=== PATIENT | female | born 2000 | race Caucasian/White ===

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

== ENCOUNTER → 2024-08-26 | Outpatient (CLI) | payer BC, OTHER ==
--- NOTE | 2024-08-27 09:31 | CA ---
Transthoracic Echo Report Name: Boris Waldron Age: 24 Gender: F : 2000 Exam Date: 08/26/2024 18:02 Exam Location: [facility] Ht (in): 60 Wt (lb): 196 Ordering Physician: Sunny Retana MD Attending/Referring Phys: Mariaelena Honeycutt PAC Pre Billing Clinician Mary Vaughan RDCS Procedure CPT: Indications: R07.89 chest pain Cardiac Hx: Technical Quality: Fair Contrast 1: Total Dose (mL): Contrast 2: Total Dose (mL): MEASUREMENTS (Male / Female) Normal Values 2D ECHO LV Diastolic Diameter PLAX 4.2 cm 4.2 - 5.9 / 3.9 - 5.3 cm LV Systolic Diameter PLAX 2.8 cm IVS Diastolic Thickness 1.1 cm 0.6 - 1.0 / 0.6 - 0.9 cm LVPW Diastolic Thickness 1.0 cm 0.6 - 1.0 / 0.6 - 0.9 cm LV Relative Wall Thickness 0.5 RV Internal Dim ED PLAX 2.7 cm LA Volume 44.6 cm??? 18 - 58 / 22 - 52 cm??? LA Volume Index 22.4 cm???/m??? 16 - 28 cm???/m??? M-MODE Aortic Root Diameter MM 2.4 cm LA Systolic Diameter MM 3.3 cm LA Ao Ratio MM 1.4 AV Cusp Separation MM 1.5 cm DOPPLER AV Peak Velocity 106.0 cm/s AV Peak Gradient 4.5 mmHg AV Mean Velocity 66.0 cm/s AV Mean Gradient 2.0 mmHg AV Velocity Time Integral 17.6 cm LVOT Peak Velocity 105.5 cm/s LVOT Peak Gradient 4.5 mmHg LVOT Velocity Time Integral 19.4 cm MV Area PHT 4.3 cm??? Mitral E Point Velocity 97.6 cm/s Mitral A Point Velocity 70.3 cm/s Mitral E to A Ratio 1.4 MV Deceleration Time 175.5 ms MV E' Velocity 7.3 cm/s Mitral E to MV E' Ratio 13.4 TR Peak Velocity 207.7 cm/s TR Peak Gradient 17.3 mmHg Right Ventricular Systolic Press 22.3 mmHg FINDINGS Left Ventricle Normal Left ventricular size, wall thickness, systolic function with no obvious regional wall motion abnormalities. Normal Left ventricular diastolic filling pattern. Left ventricular ejection fraction is estimated at 55-60 %. Right Ventricle Normal right ventricular size and function. Right Atrium Normal right atrial size. Left Atrium Normal left atrial size. Mitral Valve Structurally normal mitral valve. No mitral stenosis, regurgitation or prolapse. Aortic Valve Trileaflet aortic valve. No aortic valve stenosis . Trace regurgitation. Tricuspid Valve Structurally normal tricuspid valve. mild tricuspid regurgitation. Pulmonic Valve Structurally normal pulmonic valve. Pericardium No pericardial effusion. Aorta Normal size aortic root and proximal ascending aorta. CONCLUSIONS 1. Normal left ventricular size and systolic function 2. Mild tricuspid with trace aortic regurgitation Previewed by: Dr. Samra Watkins MD (Electronically Signed) Final Date: 27 August 2024 09:30
== END | disposition home or self-care (01) ==
LOC: RADECHMAIN 17:50
PROVIDERS: ATTEND Family Medicine
DX: R07.89 Other chest pain
CPT/HCPCS: 93306

== ENCOUNTER → 2025-03-05 | Outpatient (CLI) | payer BC, OTHER ==
--- NOTE | 2025-03-06 08:52 | MR ---
INDICATION: Patient age:Female; 24 years old; Reason for study: M54.16 RADICULOPATHY, LUMBAR REGION; PHH. COMPARISONS: No priors. TECHNIQUE: Multi planar, multi sequence imaging was performed utilizing: T1-weighted, T2-weighted, a nd turbo inversion recovery imaging of the lumbar spine. The patient was not given contrast. FINDINGS: The lumbar vertebral bodies do have preserved heights and alignment. Intervertebral disc signal is maintained. T1/T2 hypointense benign vertebral hemangioma involving the T11 vertebral body. Additional partially visualized probable hemangioma involving the T10 vertebral body. Diffusely redu brandee signal in the bone marrow on T1 weighted sequence. The conus medullaris and the distal spinal cor d do appear unremarkable with regards to their signal intensity and morphology. T12-L1: No significant disc pathology is identified. The spinal canal and neural foramen are patent L1-L2: No significant disc pathology is identified. The spinal canal and neural foramen are patent. L2-L3: No significant disc pathology is identified. The spinal canal and neural foramen are patent. L3-L4: No significant disc pathology is identified. The spinal canal and neural foramen are patent. L4-L5: No significant disc pathology is identified. The spinal canal and neural foramen are patent L5-S1: No significant disc pathology is identified. The spinal canal and neural foramen are patent Other significant findings: Posterior back subcutaneous edema.. IMPRESSION: 1. No definitive evidence for disc herniation or significant spinal canal stenosis. No degenerative disc disease. 2. Diffuse red marrow conversion can be seen in the setting of tobacco abuse, anemia, or myeloprolif erative disorder. [facility], , 03/06/2025 8:50 AM
== END | disposition home or self-care (01) ==
LOC: RADMRIMAIN 17:45
PROVIDERS: ATTEND Family Medicine
DX: D75.89 Other specified diseases of blood and blood-forming organs (principal); M54.16 Radiculopathy, lumbar region
CPT/HCPCS: 72148